=== PATIENT | male | born 1970 | race Caucasian/White ===

== ENCOUNTER → 2016-12-19 | Outpatient (CLI) | payer OTHER ==
[2016-12-19 11:20] LABS: ALANINE AMINOTRANSFERASE 32 U/L (0-55); ALBUMIN 4.2 GM/DL (3.2-4.5); ANION GAP 10 MMOL/L (5-14); ASPARTATE AMINO TRANSFERASE 18 U/L (5-34); BILIRUBIN,TOTAL 0.8 MG/DL (0.1-1.0); BLOOD UREA NITROGEN 15 MG/DL (7-18); BUN/CREATININE RATIO 13; CALCIUM 9.3 MG/DL (8.5-10.1); CARBON DIOXIDE 22 MMOL/L (21-32); CHLORIDE 106 MMOL/L (98-107); CHOLESTEROL 211 MG/DL (< 200); CREATININE SERUM 1.19 MG/DL (0.60-1.30); DIRECT LDL 121 MG/DL (1-129); GFR ESTIMATED > 60; GLUCOSE 389 MG/DL (70-105); POTASSIUM 4.1 MMOL/L (3.6-5.0); SODIUM 138 MMOL/L (135-145); TOTAL PROTEIN 7.1 GM/DL (6.4-8.2); TRIGLYCERIDES 350 MG/DL (<150); VLDL CHOLESTEROL 70 MG/DL (5-40)
== END ==
LOC: LAB 10:30
PROVIDERS: ATTEND Physician Assistant
DX: R94.31 Abnormal electrocardiogram [ECG] [EKG] (principal); I73.9 Peripheral vascular disease, unspecified; E66.9 Obesity, unspecified; I45.10 Unspecified right bundle-branch block
CPT/HCPCS: 36415; 80053; 80061; 83036

== ENCOUNTER → 2017-01-08 | Outpatient (CLI) | payer OTHER | LOC: CARD 09:12 | PROVIDERS: ATTEND Internal Medicine Cardiovascular Disease | DX: I73.9 Peripheral vascular disease, unspecified (principal); I45.10 Unspecified right bundle-branch block; E66.9 Obesity, unspecified; R94.31 Abnormal electrocardiogram [ECG] [EKG] | CPT/HCPCS: 93306 ==

== ENCOUNTER 2017-12-24 09:37 | Emergency (ER) | payer SELFPAY ==
[~2017-12-24] VITALS: Ht 188 cm; Wt 122.5 kg
[2017-12-24] MEDS ORDERED: NS IV 1000 ML 1,000 ML ONE ×2 (09:55→10:54)
--- NOTE | 2017-12-24 10:19 | ED General ---
General Chief Complaint: Glucose Problems Stated Complaint: BS HIGH Nursing Triage Note: Pt arrived to ED from Dental Office. Pt states that his BS >400. Pt states that he is not diagnosed as diabetic, does not take medications, or test his BS. Pt ambulates to Room 8. Pt appears confused, garbled speech, and poor historian. Nursing Sepsis Screen: No Definite Risk Source of Information: Patient Exam Limitations: No Limitations History of Present Illness Date Seen by Provider: Dec 24, 2017 Time Seen by Provider: 10:16 Initial Comments To ER per private vehicle him a dental clinic with reports of high blood sugar greater than 400. Patient is not known to be a diabetic and takes no medications for this. His only complaint today is of foot pain which she states that he's had bilaterally and for about 2 years. He denies nausea vomiting chest pain shortness of breath. He does report general weakness. He is very vague about his complaints and a poor historian. His mother provides most of the history of present illness. Timing/Duration: Other (unsure) Severity: Moderate Associated Systoms: No Nausea/Vomiting; Weakness Allergies and Home Medications Allergies Coded Allergies: No Known Drug Allergies (Unverified , 12/24/17) Home Medications Metformin HCl 500 Mg Tablet, 1,000 MG PO BID Prescribed by: GURPREET DEVINE on 12/24/17 1156 Patient Home Medication List Home Medication List Reviewed: Yes Review of Systems Review of Systems Constitutional: see HPI EENTM: see HPI Respiratory: no symptoms reported Cardiovascular: no symptoms reported Genitourinary: no symptoms reported Musculoskeletal: no symptoms reported Skin: no symptoms reported Psychiatric/Neurological: No Symptoms Reported Hematologic/Lymphatic: No Symptoms Reported Immunological/Allergic: no symptoms reported Past Cstoutv-Qvkquo-Fyasvi Hx Patient Social History Alcohol Use: Denies Use Recreational Drug Use: No Smoking Status: Never a Smoker 2nd Hand Smoke Exposure: No Recent Foreign Travel: No Contact w/Someone Who Travel: No Recent Infectious Disease Expo: No Recent Hopitalizations: No Physical Abuse: No Sexual Abuse: No Mistreated: No Fear: No Past Medical History Surgeries: No Respiratory: No Cardiac: Yes (Pt states "I had to go to a heart Dr. because I have an irregularity". ) Genitourinary: No Gastrointestinal: No Musculoskeletal: No Endocrine: Yes (Pt states "my blood sugars run over 200, but Im not diabetic". ) Are Your Blood Sugars Over 250: Yes HEENT: No Cancer: No Psychosocial: No Integumentary: No Physical Exam Vital Signs Vital Signs - First Documented 12/24/17 09:48 Temp 98.2 Pulse 90 Resp 14 B/P (MAP) 172/106 (128) Pulse Ox 98 O2 Delivery Room Air Capillary Refill : Less Than 3 Seconds Height, Weight, BMI Height: 6'2.00" Weight: 270lbs. oz. 122.353608mf; BMI Method:Stated General Appearance: No Apparent Distress, WD/WN Eyes: Bilateral Eye Normal Inspection, Bilateral Eye PERRL, Bilateral Eye EOMI HEENT: PERRL/EOMI, TMs Normal Neck: Full Range of Motion, Normal Inspection Respiratory: Normal Breath Sounds, No Accessory Muscle Use, No Respiratory Distress Cardiovascular: Regular Rate, Rhythm, Normal Peripheral Pulses Gastrointestinal: Normal Bowel Sounds, Non Tender, Soft Extremity: Normal Capillary Refill, Normal Inspection, No Pedal Edema Neurologic/Psychiatric: Alert, Oriented x3 Skin: Normal Color, Warm/Dry, Other (palm sized mass to the Center of the sternum with normal colored skin overlying this. He states this is been there for about 30 years. Soft on palpation and nontender.) Progress/Results/Core Measures Suspected Sepsis Recent Fever Within 48 Hours: No Infection Criteria Present: None New/Unexplained Altered Menta: Yes Sepsis Screen: No Definite Risk SIRS Temperature:98.2 Pulse: 90 Respiratory Rate: 14 Laboratory Tests 12/24/17 09:55: White Blood Count 6.6 Blood Pressure 172 /106 Mean: 128 Laboratory Tests 12/24/17 09:55: Creatinine 1.31H, Platelet Count 292, Total Bilirubin 0.6 Results/Orders Lab Results Laboratory Tests Test 12/24/17 09:49 12/24/17 09:55 12/24/17 11:18 12/24/17 11:23 Range/Units Glucometer 469 *H 332 H 70-110 MG/DL White Blood Count 6.6 4.3-11.0 10^3/uL Red Blood Count 5.42 4.35-5.85 10^6/uL Hemoglobin 16.1 13.3-17.7 G/DL Hematocrit 46 40-54 % Mean Corpuscular Volume 85 80-99 FL Mean Corpuscular Hemoglobin 30 25-34 PG Mean Corpuscular Hemoglobin Concent 35 32-36 G/DL Red Cell Distribution Width 13.8 10.0-14.5 % Platelet Count 292 130-400 10^3/uL Mean Platelet Volume 10.7 H 7.4-10.4 FL Neutrophils (%) (Auto) 63 42-75 % Lymphocytes (%) (Auto) 27 12-44 % Monocytes (%) (Auto) 8 0-12 % Eosinophils (%) (Auto) 2 0-10 % Basophils (%) (Auto) 1 0-10 % Neutrophils # (Auto) 4.1 1.8-7.8 X 10^3 Lymphocytes # (Auto) 1.8 1.0-4.0 X 10^3 Monocytes # (Auto) 0.5 0.0-1.0 X 10^3 Eosinophils # (Auto) 0.1 0.0-0.3 10^3/uL Basophils # (Auto) 0.0 0.0-0.1 10^3/uL Sodium Level 135 135-145 MMOL/L Potassium Level 4.3 3.6-5.0 MMOL/L Chloride Level 102 98-107 MMOL/L Carbon Dioxide Level 22 21-32 MMOL/L Anion Gap 11 5-14 MMOL/L Blood Urea Nitrogen 12 7-18 MG/DL Creatinine 1.31 H 0.60-1.30 MG/DL Estimat Glomerular Filtration Rate 58 BUN/Creatinine Ratio 9 Glucose Level 481 *H 70-105 MG/DL Mean Blood Glucose 283 H <=126 mg/dL Hemoglobin A1c 11.5 H 4.0-5.6 % Calcium Level 9.7 8.5-10.1 MG/DL Corrected Calcium 9.4 8.5-10.1 MG/DL Total Bilirubin 0.6 0.1-1.0 MG/DL Aspartate Amino Transf (AST/SGOT) 20 5-34 U/L Alanine Aminotransferase (ALT/SGPT) 29 0-55 U/L Alkaline Phosphatase 115 40-136 U/L Total Protein 7.9 6.4-8.2 GM/DL Albumin 4.4 3.2-4.5 GM/DL Thyroid Stimulating Hormone (TSH) 1.27 0.35-4.94 UIU/ML Free Thyroxine 1.06 0.70-1.48 NG/DL Urine Color YELLOW Urine Clarity CLEAR Urine pH 5 5-9 Urine Specific [place] 1.015 L 1.016-1.022 Urine Protein NEGATIVE NEGATIVE Urine Glucose (UA) 4+ H NEGATIVE Urine Ketones 3+ H NEGATIVE Urine Nitrite NEGATIVE NEGATIVE Urine Bilirubin NEGATIVE NEGATIVE Urine Urobilinogen NORMAL NORMAL MG/DL Urine Leukocyte Esterase NEGATIVE NEGATIVE Urine RBC (Auto) NEGATIVE NEGATIVE Urine RBC NONE /HPF Urine WBC NONE /HPF Urine Crystals NONE /LPF Urine Bacteria NEGATIVE /HPF Urine Casts NONE /LPF Urine Mucus NEGATIVE /LPF Urine Culture Indicated NO My Orders Orders - GURPREET DEVINE APRN Insulin (Regular) Human (Humulin R (Per (12/24/17 11:00) Cbc With Automated Diff (12/24/17 10:15) Comprehensive Metabolic Panel (12/24/17 10:15) Ua Culture If Indicated (12/24/17 10:15) Thyroid Stimulating Hormone (12/24/17 10:48) Free T4 (Free Thyroxine) (12/24/17 10:48) Ns Iv 1000 Ml (Sodium Chloride 0.9%) (12/24/17 11:00) Ns Iv 1000 Ml (Sodium Chloride 0.9%) (12/24/17 10:54) Hemoglobin A1c (12/24/17 11:50) Medications Given in ED Vital Signs/I&O Capillary Refill : Less Than 3 Seconds Blood Pressure Mean: 128 Departure Communication (Admissions) patient's mother does not feel like a chest x-ray is warranted 1154- blood sugar down to 332. Mother remains at the bedside. Discussed the case with Dr. Dr. Howell. We will discharged home on metformin 1000 mg by mouth twice a day, diabetic diet instructions and he'll follow up with Dr. Dr. Howell in the clinic tomorrow at 9 AM. Impression Primary Impression: Diabetes mellitus Disposition: 01 HOME, SELF-CARE Condition: Stable Departure-Patient Inst. Decision time for Depature: 11:54 Referrals: JOCELINE HOWELL DO (PCP/Family) Primary Care Physician Patient Instructions: Diabetes Diet , Diabetes Type 2 (DC) Add. Discharge Instructions: 1. Return to ER for any concerns 2 follow-up with Dr. Dr. Howell tomorrow morning at 9 AM. Scripts Metformin HCl (Metformin HCl) 500 Mg Tablet 1000 MG PO BID, #40 TAB Prov: GURPREET DEVINE APRN 12/24/17 Copy Copies To 1: JOCELINE HOWELL PETER J APRN Dec 24, 2017 10:19
[2017-12-24 10:21] LABS: BASOPHILS % (AUTO) 1 % (0-10); EOSINOPHILS # (AUTO) 0.1 10^3/uL (0.0-0.3); EOSINOPHILS % (AUTO) 2 % (0-10); HEMATOCRIT 46 % (40-54); HEMOGLOBIN 16.1 G/DL (13.3-17.7); LYMPHOCYTES # (AUTO) 1.8 X 10^3 (1.0-4.0); LYMPHOCYTES % (AUTO) 27 % (12-44); MEAN CORPUSCULAR HEMOGLOBIN 30 PG (25-34); MEAN CORPUSCULAR HGB CONC 35 G/DL (32-36); MEAN CORPUSCULAR VOLUME 85 FL (80-99); MEAN PLATELET VOLUME 10.7 FL (7.4-10.4); MONOCYTES # (AUTO) 0.5 X 10^3 (0.0-1.0); MONOCYTES % (AUTO) 8 % (0-12); NEUTROPHILS # (AUTO) 4.1 X 10^3 (1.8-7.8); NEUTROPHILS % (AUTO) 63 % (42-75); PLATELET COUNT 292 10^3/uL (130-400); RED BLOOD COUNT 5.42 10^6/uL (4.35-5.85); RED CELL DISTRIBUTION WIDTH 13.8 % (10.0-14.5); WHITE BLOOD COUNT 6.6 10^3/uL (4.3-11.0)
[2017-12-24 10:32] LABS: ALBUMIN 4.4 GM/DL (3.2-4.5); BILIRUBIN,TOTAL 0.6 MG/DL (0.1-1.0); CALCIUM 9.7 MG/DL (8.5-10.1); CREATININE SERUM 1.31 MG/DL (0.60-1.30); POTASSIUM 4.3 MMOL/L (3.6-5.0); TOTAL PROTEIN 7.9 GM/DL (6.4-8.2)
[2017-12-24] MEDS ORDERED: NS IV 1000 ML 1,000 ML IV SCH (11:00)
[2017-12-24] MEDS ORDERED: inSUlin (REGULAR) HUMAN 1 UNIT/0.01 ML (CHARGE PER UNIT) IV SCH (11:00)
[2017-12-24 11:26] LABS: BILIRUBIN,URINE NEGATIVE (NEGATIVE); CLARITY,URINE CLEAR; COLOR,URINE YELLOW; GLUCOSE, URINE (UA) 4+ (NEGATIVE); KETONES,URINE 3+ (NEGATIVE); LEUKOCYTE ESTERASE ,URINE NEGATIVE (NEGATIVE); NITRITE,URINE NEGATIVE (NEGATIVE); PH,URINE 5 (5-9); PROTEIN,URINE NEGATIVE (NEGATIVE); UROBILINOGEN,URINE NORMAL (NORMAL)
[2017-12-24 11:28] LABS: FREE T4 (FREE THYROXINE) 1.06 NG/DL (0.70-1.48)
[2017-12-24 11:36] LABS: BACTERIA,URINE NEGATIVE /HPF
[2017-12-24] MEDS ORDERED: METF-397 PO (11:56)
[2017-12-24 12:10] VITALS: BP 146/88
== END 2017-12-24 12:10 | disposition home or self-care (01) ==
LOC: EDUNIT# 09:37 → ER 09:38
DX: E11.65 Type 2 diabetes mellitus with hyperglycemia (principal); Z79.84 Long term (current) use of oral hypoglycemic drugs
CPT/HCPCS: 36415; 80053; 81000; 82962; 83036; 84439; 84443; 85025; 96361; 96374

== ENCOUNTER 2022-03-29 04:20 | Inpatient (IN) | payer SELFPAY ==
[2022-03-29] VITALS (10 sets, daily range): BP systolic 123–149; BP diastolic 69–90
[~2022-03-29] VITALS: Ht 188 cm; Wt 117.8 kg
[~2022-03-29 04:20] MED LIST: METF-397 PO
[2022-03-29 05:48] LABS: BASOPHILS % (AUTO) 1 % (0-10); EOSINOPHILS # (AUTO) 0.2 10^3/uL (0.0-0.3); EOSINOPHILS % (AUTO) 3 % (0-10); HEMATOCRIT 41 % (40-54); HEMOGLOBIN 13.8 g/dL (13.3-17.7); LYMPHOCYTES # (AUTO) 0.9 10^3/uL (1.0-4.0); LYMPHOCYTES % (AUTO) 17 % (12-44); MEAN CORPUSCULAR HEMOGLOBIN 29 pg (25-34); MEAN CORPUSCULAR HGB CONC 34 g/dL (32-36); MEAN CORPUSCULAR VOLUME 87 fL (80-99); MEAN PLATELET VOLUME 10.4 fL (9.0-12.2); MONOCYTES # (AUTO) 0.6 10^3/uL (0.0-1.0); MONOCYTES % (AUTO) 11 % (0-12); NEUTROPHILS # (AUTO) 3.8 10^3/uL (1.8-7.8); NEUTROPHILS % (AUTO) 69 % (42-75); PLATELET COUNT 296 10^3/uL (130-400); WHITE BLOOD COUNT 5.5 10^3/uL (4.3-11.0)
[2022-03-29 06:01] LABS: ALBUMIN 3.9 GM/DL (3.2-4.5); BILIRUBIN,TOTAL 0.6 MG/DL (0.1-1.0); CALCIUM 9.7 MG/DL (8.5-10.1); CREATININE SERUM 1.14 MG/DL (0.60-1.30); POTASSIUM 4.2 MMOL/L (3.6-5.0); TOTAL PROTEIN 7.2 GM/DL (6.4-8.2)
--- NOTE | 2022-03-29 06:31 | ED General ---
General Chief Complaint: Abdominal/GI Problems Stated Complaint: ABD PAIN Nursing Triage Note: TO ED VIA POV AND AMBULATORY TO ROOM 5. PT STATES, "I THINK MY INTESTINES HAVE BEEN LEAKING FOR 4 DAYS". Source of Information: Patient Exam Limitations: No Limitations (NICK SANCHEZ MD) History of Present Illness Date Seen by Provider: Mar 29, 2022 Time Seen by Provider: 04:46 Initial Comments This 51-year-old gentleman presents to the emergency room with an abscess in his right groin. He had incision and drainage performed at the clinic 4 days ago. He is concerned that this was actually a hernia and not an abscess and that his intestines were incised during the procedure. He is concerned that the drainage is actually bowel contents. He denies any fever but he is tachycardic. He is a diabetic on oral medications. He has foul-smelling purulent drainage coming from the incision site in the groin between the right scrotum and thigh. He was started on Bactrim after the incision and drainage (NICK SANCHEZ MD) Allergies and Home Medications Allergies Coded Allergies: codeine (Verified Adverse Reaction, Unknown, torsten, 03/29/22) Patient Home Medication List Home Medication List Reviewed: Yes (NICK SANCHEZ MD) Home Medication List Reviewed: Yes (EUGENIO WILLIAM MD) Metformin HCl (Metformin HCl) 500 Mg Tablet, 1,000 MG PO BID Prescribed by: GURPREET DEVINE on 12/24/17 2776 Review of Systems Review of Systems Constitutional: no symptoms reported EENTM: no symptoms reported Respiratory: see HPI Cardiovascular: no symptoms reported Gastrointestinal: no symptoms reported Genitourinary: see HPI Musculoskeletal: no symptoms reported Skin: see HPI Psychiatric/Neurological: No Symptoms Reported Hematologic/Lymphatic: No Symptoms Reported Immunological/Allergic: no symptoms reported (NICK SANCHEZ MD) Past Gzsplde-Ndgolm-Ldlpzf Hx Patient Social History Tobacco Use?: No Substance use?: No Alcohol Use?: No (NICK SANCHEZ MD) Immunizations Up To Date Influenza Vaccine Up-to-Date: No; Not Current (NICK SANCHEZ MD) Past Medical History Surgeries: No Respiratory: No Cardiac: Yes (Pt states "I had to go to a heart Dr. because I have an irregularity". ) Neurological: No Genitourinary: No Gastrointestinal: No Musculoskeletal: No Endocrine: Yes Diabetes, Non-Insulin dep HEENT: No Cancer: No Psychosocial: No Integumentary: Yes (Large cystic lesion over the superior sternal region) (NICK SANCHEZ MD) Physical Exam Vital Signs Vital Signs - First Documented 03/29/22 04:37 Temp 36.7 Pulse 104 Resp 16 B/P (MAP) 193/106 (135) Pulse Ox 98 O2 Delivery Room Air (EUGENIO WILLIAM MD) Vital Signs Capillary Refill : Less Than 3 Seconds (NICK SANCHEZ MD) Height, Weight, BMI Height: 6'2.00" Weight: 270lbs. oz. 122.861358ie; 34.00 BMI Method:Stated General Appearance: No Apparent Distress, WD/WN HEENT: PERRL/EOMI, Normal ENT Inspection Neck: Normal Inspection Respiratory: Lungs Clear, Normal Breath Sounds, No Accessory Muscle Use, No Respiratory Distress, Other (Large cystic lesion over the superior sternal region) Cardiovascular: No Edema, No Murmur, Tachycardia Gastrointestinal: Normal Bowel Sounds, Non Tender, Soft Genital/Rectal: Other (There is a fairly large area of induration probably 4 cm in diameter in the right groin with an area draining inferior. Drainage is purulent and foul-smelling. Over the mons area there is warmth and erythema.) Extremity: Normal Inspection, No Pedal Edema Neurologic/Psychiatric: Alert, Oriented x3, No Motor/Sensory Deficits, Normal Mood/Affect Skin: Normal Color, Other (See above) (NICK SANCHEZ MD) Focused Exam Lactate Level 03/29/22 08:26: Lactic Acid Level 1.35 (EUGENIO WILLIAM MD) Lactic Acid Level Laboratory Tests Test 03/29/22 08:26 Lactic Acid Level 1.35 MMOL/L (0.50-2.00) (EUGENIO WILLIAM MD) Progress/Results/Core Measures Suspected Sepsis SIRS Temperature: Pulse: 104 Respiratory Rate: 16 Laboratory Tests 03/29/22 05:27: White Blood Count 5.5 Blood Pressure 193 /106 Mean: 135 Laboratory Tests 03/29/22 05:27: Creatinine 1.14, Platelet Count 296, Total Bilirubin 0.6 (NICK SANCHEZ MD) Results/Orders Lab Results Laboratory Tests Test 03/29/22 05:27 03/29/22 08:26 03/29/22 08:48 Range/Units White Blood Count 5.5 4.3-11.0 10^3/uL Red Blood Count 4.75 4.30-5.52 10^6/uL Hemoglobin 13.8 13.3-17.7 g/dL Hematocrit 41 40-54 % Mean Corpuscular Volume 87 80-99 fL Mean Corpuscular Hemoglobin 29 25-34 pg Mean Corpuscular Hemoglobin Concent 34 32-36 g/dL Red Cell Distribution Width 12.4 10.0-14.5 % Platelet Count 296 130-400 10^3/uL Mean Platelet Volume 10.4 9.0-12.2 fL Immature Granulocyte % (Auto) 0 % Neutrophils (%) (Auto) 69 42-75 % Lymphocytes (%) (Auto) 17 12-44 % Monocytes (%) (Auto) 11 0-12 % Eosinophils (%) (Auto) 3 0-10 % Basophils (%) (Auto) 1 0-10 % Neutrophils # (Auto) 3.8 1.8-7.8 10^3/uL Lymphocytes # (Auto) 0.9 L 1.0-4.0 10^3/uL Monocytes # (Auto) 0.6 0.0-1.0 10^3/uL Eosinophils # (Auto) 0.2 0.0-0.3 10^3/uL Basophils # (Auto) 0.0 0.0-0.1 10^3/uL Immature Granulocyte # (Auto) 0.0 0.0-0.1 10^3/uL Sodium Level 136 135-145 MMOL/L Potassium Level 4.2 3.6-5.0 MMOL/L Chloride Level 103 98-107 MMOL/L Carbon Dioxide Level 20 L 21-32 MMOL/L Anion Gap 13 5-14 MMOL/L Blood Urea Nitrogen 15 7-18 MG/DL Creatinine 1.14 0.60-1.30 MG/DL Estimat Glomerular Filtration Rate 77 BUN/Creatinine Ratio 13 Glucose Level 360 H 70-105 MG/DL Calcium Level 9.7 8.5-10.1 MG/DL Corrected Calcium 9.8 8.5-10.1 MG/DL Total Bilirubin 0.6 0.1-1.0 MG/DL Aspartate Amino Transf (AST/SGOT) 11 5-34 U/L Alanine Aminotransferase (ALT/SGPT) 15 0-55 U/L Alkaline Phosphatase 72 40-136 U/L C-Reactive Protein High Sensitivity 6.26 H 0.00-0.50 MG/DL Total Protein 7.2 6.4-8.2 GM/DL Albumin 3.9 3.2-4.5 GM/DL Lactic Acid Level 1.35 0.50-2.00 MMOL/L Glucometer 305 H 70-110 MG/DL (EUGENIO WILLIAM MD) My Orders Orders - EUGENIO WILLIAM MD Blood Culture (03/29/22 08:13) Lactic Acid Analyzer (03/29/22 08:13) Piperacillin Sodium/Tazobactam (Zosyn Vi (03/29/22 08:15) Vancomycin Injection (Vancomycin Injecti (03/29/22 08:15) Clindamycin 600 Mg/50 Ml Ivpb (Cleocin P (03/29/22 08:15) Ns Iv 1000 Ml (Sodium Chloride 0.9%) (03/29/22 08:13) Blood Culture (03/29/22 08:26) Ed Admission (Communication) (03/29/22 10:45) (EUGENIO WILLIAM MD) Medications Given in ED Current Medications Medications Dose Ordered Sig/Alex Route Start Time Stop Time Status Last Admin Dose Admin Clindamycin Phosphate/Dextrose 50 ml @ 100 mls/hr ONCE ONCE IV 03/29/22 08:15 03/29/22 08:44 DC 03/29/22 08:26 100 MLS/HR Lactated Ringer's 1,000 ml @ 0 mls/hr Q0M PRN IV 03/29/22 10:00 03/29/22 12:10 0 MLS/HR Piperacillin Sod/ Tazobactam Sod 4.5 gm/Sodium Chloride 100 ml @ 200 mls/hr ONCE ONCE IV 03/29/22 08:15 12 08:44 DC 03/29/22 10:29 200 MLS/HR Vancomycin HCl 1000 mg/Sodium Chloride 250 ml @ 250 mls/hr ONCE ONCE IV 03/29/22 08:15 03/29/22 09:14 DC 03/29/22 09:06 250 MLS/HR (EUGENIO WILLIAM MD) Vital Signs/I&O 03/29/22 04:37 Temp 36.7 Pulse 104 Resp 16 B/P (MAP) 193/106 (135) Pulse Ox 98 O2 Delivery Room Air (EUGENIO WILLIAM MD) Vital Signs/I&O Capillary Refill : Less Than 3 Seconds (NICK SANCHEZ MD) Blood Pressure Mean: 135 Progress Note : Time: 06:31 Progress Note Patient was interviewed and examined. Based on examination it is difficult to determine whether abscess is still present or if there is simply a large area of induration. It is also difficult to ascertain how deep or widespread the affected area is. There is purulent drainage actively coming from the abscess when expressed. Because of the diabetes and tachycardia in the context of skin infection, labs are being obtained. IV fluids have been ordered. Renal function is normal, so CT with contrast to further evaluate the abscess has been ordered. Patient declined pain medication. Care is being transitioned to Dr. William at this time. CT scan is pending. (NICK SANCHEZ MD) Progress Note #1: Time: 08:30 Progress Note Patient care assumed at shift change from Dr. Condon CT being ordered at shift change. Patient reexamined at approximately 8:10. He states his pain is controlled. He has generalized malaise fatigue and discomfort in the right groin. He tells me that the area of concern has been developing since about 24 March. He has been taking Bactrim twice a day since he was seen at [facility] and had the area opened up. He states it is worsened. He endorses subjective fever with chills. His appetite has been decreased. He thinks he is lost 5 pounds in 5 days. Normal urination, normal bowel movements. Area is examined as the patient is lying shelter on his right side. He has quite a bit of induration and erythema and tenderness along the right hemiscrotum and up into the inguinal region. No open wound is visualized. No drainage. The patient states that the wound has been bleeding. Case is discussed with Dr. Raphael after review of the CT reading by the radiologist. Zosyn, Vanco and clindamycin have been ordered as well as more IV fluids. CBC is unremarkable. Chemistry is only pertinent for a blood sugar of 360. Blood cultures have been ordered. Progress Note #2: Time: 10:[address] Raphael just saw the patient; he will go from ER to OR and Dr Raphael will write orders. (EUGENIO WILLIAM MD) Diagnostic Imaging Diagonstic Imaging: CT Comments [facility], [place] NAME: TRISTEN DRAKE [facility] REC#: [id number] PT STATUS: REG ER : 1970 PHYSICIAN: NICK SANCHEZ MD ADMIT DATE: 03/29/22/ER Draft Date of Exam:03/29/22 CT PELVIS W PROCEDURE: CT pelvis with contrast. TECHNIQUE: Oral and intravenous contrast were administered with pelvic CT performed. Auto Exposure Controls were utilized during the CT exam to meet ALARA standards for radiation dose reduction. INDICATION: Groin infection CORRELATION STUDY: None FINDINGS: Extensive inflammatory change in the right inguinal region with soft tissue gas collection. No drainable encapsulated fluid collection. Overlying skin thickening present. Prominent, likely reactive enlarged right inguinal lymph nodes. Urinary bladder unremarkable. No significant free pelvic fluid. Partially visualized gastrointestinal tract including appendix demonstrates no acute abnormality. Osseous structures demonstrate no acute findings. IMPRESSION: 1. 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 Referrals: [facility] [place] ([place]P/Family) Primary Care Physician NICK SANCHEZ MD Mar 29, 2022 06:31 EUGENIO WILLIAM MD Mar 29, 2022 08:13
[2022-03-29] MEDS ORDERED: NS IV 1000 ML 1,000 ML IV SCH (06:45)
--- NOTE | 2022-03-29 07:33 | Diagnostic Imaging Report ---
PROCEDURE: CT pelvis with contrast. TECHNIQUE: Oral and intravenous contrast were administered with pelvic CT performed. Auto Exposure Controls were utilized during the CT exam to meet ALARA standards for radiation dose reduction. INDICATION: Groin infection CORRELATION STUDY: None FINDINGS: Extensive inflammatory change in the right inguinal region with soft tissue gas collection. No drainable encapsulated fluid collection. Overlying skin thickening present. Prominent, likely reactive enlarged right inguinal lymph nodes. Urinary bladder unremarkable. No significant free pelvic fluid. Partially visualized gastrointestinal tract including appendix demonstrates no acute abnormality. Osseous structures demonstrate no acute findings. IMPRESSION: 1. 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 Dictated by: Dictated on workstation # [id number]
[2022-03-29] MEDS ORDERED: NS IV 1000 ML 1,000 ML IV STA (08:13)
[2022-03-29] MEDS ORDERED: VANCOMYCIN INJECTION 1,000 MG in NS (IVPB) 250 ML IV ONE (08:15)
[2022-03-29] MEDS ORDERED: PIPERACILLIN SODIUM/TAZOBACTAM 4.5 GM in NS (IVPB) 100 ML IV ONE (08:15)
[2022-03-29] MEDS ORDERED: CLINDAMYCIN 600 MG/50 ML IVPB 50 ML IV ONE (08:15)
[2022-03-29] MEDS ORDERED: LIDOCAINE PF 2% 5 ML (XYLOCAINE) VIAL ONE (09:48)
[2022-03-29] MEDS ORDERED: proPOfol 200 MG/20 ML (DIPRIVAN) VIAL IV ONE (09:48)
[2022-03-29] MEDS ORDERED: MIDAZOLAM 2 MG/2 ML (VERSED) VIAL ONE (09:49)
[2022-03-29] MEDS ORDERED: fentaNYL INJ 100 MCG/2 ML AMP ONE (09:49)
[2022-03-29] MEDS: LACTATED RINGERS 1,000 ML IV PRN ×2 (11:06→12:10)
--- NOTE | 2022-03-29 11:25 | Consultation - Surgery ---
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 HPI per ED: This 51-year-old gentleman presents to the emergency room with an abscess in his right groin. He had incision and drainage performed at the clinic 4 days ago. He is concerned that this was actually a hernia and not an abscess and that his intestines were incised during the procedure. He is concerned that the drainage is actually bowel contents. He denies any fever but he is tachycardic. He is a diabetic on oral medications. He has foul-smelling purulent drainage coming from the incision site in the groin between the right scrotum and thigh. He was started on Bactrim after the incision and drainage When I spoke to pt this am he stated his pain was ok, controlled with meds. Th is started a little over a week ago, continued to get worse. He denied any trauma to the area, did not think he got bit by anything and thinks it started out as a "pimple" Allergies and Home Medications Allergies Coded Allergies: codeine (Verified Adverse Reaction, Unknown, torsten, 03/29/22) Patient Home Medication List Home Medication List Reviewed: Yes Metformin HCl (Metformin HCl) 500 Mg Tablet, 1,000 MG PO BID Prescribed by: GURPREET DEVINE on 12/24/17 1155 Past Erhbcdo-Pihduw-Zdnado Hx Patient Social History Smoking Status: Never a Smoker 2nd Hand Smoke Exposure: No Recent Hopitalizations: No Alcohol Use?: No Surgeries History of Surgeries: No Respiratory History of Respiratory Disorde: No Cardiovascular History of Cardiac Disorders: Yes (Pt states "I had to go to a heart Dr. because I have an irregularity". ) Neurological History of Neurological Disord: No Genitourinary History of Genitourinary Disor: No Gastrointestinal History of Gastrointestinal Di: No Musculoskeletal History of Musculoskeletal Dis: No Endocrine History of Endocrine Disorders: Yes Endocrine Disorders: Diabetes, Non-Insulin dep HEENT History of HEENT Disorders: No Cancer History of Cancer: No Psychosocial History of Psychiatric Problem: No Integumentary History of Skin or Integumenta: Yes (Large cystic lesion over the superior sternal region) Family Medical History Significant Family History: Cancer (Father of colon CA in his 50's), Diabetes (Uncle), Hypertension (Sister) Review of Systems-General Constitutional: diaphoresis, malaise, weakness EENTM: No blurred vision, No double vision, No mouth swelling Respiratory: No cough, No dyspnea on exertion, No hemoptysis Cardiovascular: No chest pain, No edema, No palpitations Gastrointestinal: abdominal pain, constipation; No jaundice, No nausea, No vomiting Genitourinary: No discharge, No dysuria, No frequency, No hematuria Musculoskeletal: joint pain, muscle pain, muscle stiffness Skin: see HPI; No pruritus, No rash Psychiatric/Neurological: Denies Anxiety, Denies Depressed, Denies Seizure, Denies Tremors Physical Exam-General Problems Physical Exam Vital Signs Vital Signs - First Documented 03/29/22 04:37 Temp 36.7 Pulse 104 Resp 16 B/P (MAP) 193/106 (135) Pulse Ox 98 O2 Delivery Room Air Capillary Refill : Less Than 3 Seconds General Appearance: WD/WN, mild distress Eyes: Bilateral Eye PERRL, Bilateral Eye EOMI HEENT: pharynx normal; No scleral icterus (R), No scleral icterus (L) Neck: non-tender, supple Respiratory: lungs clear, normal breath sounds, no respiratory distress, no accessory muscle use Cardiovascular: no murmur, tachycardia Gastrointestinal: non tender, soft, no organomegaly, hernia (small umbilical) Rectal: deferred Back: no CVA tenderness, no vertebral tenderness Extremities: non-tender, no pedal edema, no calf tenderness Neurologic/Psychiatric: alert, oriented x 3, other (flat affect) Skin: warm/dry, other (vitiligo on abdomen and legs, right groin there is a 10 x 4cm area of erythema, it is warm and very tender to the touch) Lymphatic: no adenopathy (neck or axilla) Data Review Labs Laboratory Tests 03/29/22 05:27: White Blood Count 5.5, Red Blood Count 4.75, Hemoglobin 13.8, Hematocrit 41, Mean Corpuscular Volume 87, Mean Corpuscular Hemoglobin 29, Mean Corpuscular Hemoglobin Concent 34, Red Cell Distribution Width 12.4, Platelet Count 296, Mean Platelet Volume 10.4, Immature Granulocyte % (Auto) 0, Neutrophils (%) (Auto) 69, Lymphocytes (%) (Auto) 17, Monocytes (%) (Auto) 11, Eosinophils (%) (Auto) 3, Basophils (%) (Auto) 1, Neutrophils # (Auto) 3.8, Lymphocytes # (Auto) 0.9L, Monocytes # (Auto) 0.6, Eosinophils # (Auto) 0.2, Basophils # (Auto) 0.0, Immature Granulocyte # (Auto) 0.0, Sodium Level 136, Potassium Level 4.2, Chloride Level 103, Carbon Dioxide Level 20L, Anion Gap 13, Blood Urea Nitrogen 15, Creatinine 1.14, Estimat Glomerular Filtration Rate 77, BUN/Creatinine Ratio 13, Glucose Level 360H, Calcium Level 9.7, Corrected Calcium 9.8, Total Bilirubin 0.6, Aspartate Amino Transf (AST/SGOT) 11, Alanine Aminotransferase (ALT/SGPT) 15, Alkaline Phosphatase 72, C-Reactive Protein High Sensitivity 6.26H, Total Protein 7.2, Albumin 3.9 03/29/22 08:26: Lactic Acid Level 1.35 03/29/22 08:48: Glucometer 305H Radiology Date of Exam:03/29/22 CT PELVIS W PROCEDURE: CT pelvis with contrast. TECHNIQUE: Oral and intravenous contrast were administered with pelvic CT performed. Auto Exposure Controls were utilized during the CT exam to meet ALARA standards for radiation dose reduction. INDICATION: Groin infection CORRELATION STUDY: None FINDINGS: Extensive inflammatory change in the right inguinal region with soft tissue gas collection. No drainable encapsulated fluid collection. Overlying skin thickening present. Prominent, likely reactive enlarged right inguinal lymph nodes. Urinary bladder unremarkable. No significant free pelvic fluid. Partially visualized gastrointestinal tract including appendix demonstrates no acute abnormality. Osseous structures demonstrate no acute findings. IMPRESSION: 1. 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 Dictated by: Dictated on workstation # [id number] Dict: 03/29/22723 Trans: 03/29/22919 [facility] [id number] Interpreted by: DUSTY DEWEY DO Electronically signed by: DUSTY DEWEY DO 03/29/22919 Assessment/Plan Assessment/Plan Assessment/Plan Right groin Abscess with gas in cavity DM I reviewed the CT myself and discussed the case with the ED provider. I can see the area of abscess and air; this may be a gas producing organism or could be from previous attempt at drainage. It is not in the scrotum, so I don't think this is Fourniers'. However, this does need to be opened immediately. I talked to pt about Incision and Drainage with debridement of any necrotic area and possible packing. We will also get cultures of this for correct antibiotics. He has not eaten since yesterday. Will get consent for the procedure and start IV ABX, IV fluids, pain control and anti-emetics as needed. All questions answered to his satisfaction. PATI DALEY DO Mar 29, 2022 11:25
[2022-03-29] MEDS ORDERED: ONDANSETRON 4 MG/2 ML (SDV) Z0FRAN ONE (11:44)
--- NOTE | 2022-03-29 12:05 | Progress Note-Post Operative ---
Post-Operative Progess Note Surgeon (s)/Bending Machine Set Up Operator (s) Surgeon PATI DALEY DO Bending Machine Set Up Operator: none Pre-Operative Diagnosis Right groin abscess Post-Operative Diagnosis same pending path Procedure & Operative Findings Date of Procedure 03/29/22 Procedure Performed/Findings Incision and drainage of abscess with packing Debridement of necrotic tissue - apxx 2-3square centimeters of fat Anesthesia Type LMA Estimated Blood Loss Estimated blood loss (mL): less than 15ml Specimens/Packing Specimens Removed abscess culture necrotic tissue PATI DALEY DO Mar 29, 2022 12:05
[2022-03-29] MEDS ORDERED: SEVOFLURANE (ULTANE) 15 ML INHAL SOLN ONE (12:11)
[2022-03-29] MEDS ORDERED: morphine INJ 10 MG/ML 1ML (SYR OR VIAL) IVP ONE (12:45)
[2022-03-29] MEDS ORDERED: ONDANSETRON 4 MG/2 ML (SDV) Z0FRAN IVP PRN ×3 (12:45→20:45)
[2022-03-29] MEDS ORDERED: morphine INJ 4 MG/ML 1 ML (VIAL/SYRINGE) ONE (12:50)
[2022-03-29] MEDS ORDERED: morphine INJ 4 MG/ML 1 ML (VIAL/SYRINGE) IVP PRN (15:45)
[2022-03-29] MEDS ORDERED: CALCIUM CARBONATE 500 MG (TUMS) TAB.CHEW PO PRN (20:45)
[2022-03-29] MEDS ORDERED: BISACODYL 10 MG SUPP (DULCOLAX) PR PRN (20:45)
[2022-03-29] MEDS ORDERED: LOPERAMIDE 2 MG (IMODIUM) TABLET PO PRN (20:45)
[2022-03-29] MEDS ORDERED: ALPRAZolam 0.25 MG (XANAX) TAB PO PRN (20:45)
[2022-03-29] MEDS ORDERED: HYDROcodone/APAP 5 MG/325 MG (LORTAB) TAB PO PRN (20:45)
[2022-03-29] MEDS ORDERED: LACTULOSE SYRUP 10GM/15ML (ENULOSE) 30ML UDC PO PRN (20:45)
[2022-03-29] MEDS ORDERED: ACETAMINOPHEN 325 MG TABLET PO PRN (20:45)
[2022-03-29] MEDS ORDERED: DOCUSATE SODIUM 100 MG (COLACE) CAP PO PRN (20:45)
[2022-03-29] MEDS ORDERED: diphenhydrAMINE 25 MG TAB (BENADRYL) PO PRN (20:45)
[2022-03-29] MEDS ORDERED: ONDANSETRON 4 MG (ZOFRAN) ORAL DISSOLVE TAB PO PRN (20:45)
[2022-03-29] MEDS ORDERED: MELATONIN 3 MG TABLET PO PRN (20:45)
[2022-03-29] MEDS ORDERED: MENTHOL/ZINC OXIDE (CALMOSEPTINE) 113 GM TUBE TP PRN (20:45)
[2022-03-29] MEDS: CLINDAMYCIN 900 MG/50 ML IVPB 50 ML IV SCH (21:00)
[2022-03-29] MEDS: inSUlin ASPART (NovoLOG) 1 UNIT/0.01 ML (CHARGE PER UNIT) SC SCH (21:01)
[2022-03-29] MEDS: SENNA W/DOCUSATE (SENOKOT S) TABLET PO SCH (21:01)
[2022-03-29] MEDS: ENOXAPARIN 40 MG/0.4 ML (LOVENOX) SYR SC SCH (21:01)
--- NOTE | 2022-03-29 23:04 | OPERATIVE REPORT ---
PREOPERATIVE DIAGNOSIS: Right groin abscess. POSTOPERATIVE DIAGNOSES: Right groin abscess plus necrotic tissue. PROCEDURES: 1. Incision and drainage of abscess with packing. 2. Debridement of necrotic tissue, approximately 2-3 square cm of tissue. SURGEON: Pito Raphael DO ADMINISTRATIVE SUPPORT ASSISTANT: None. ANESTHESIA: LMA. SPECIMENS: 1. Necrotic tissue. 2. Abscess culture. BLOOD LOSS: Less than 15 mL. FLUIDS: Per anesthesia. POSTOPERATIVE CONDITION: Stable. INDICATIONS FOR PROCEDURE: The patient is a 51-year-old male who came in with right groin abscess. I had attempted to DICTATION ENDS HERE Job ID: [id number] DocumentID: [id number] Dictated Date: 03/29/2022 18:56:33 Director Of Labor Relations Date: 03/29/2022 23:03:00 Dictated By: PITO RAPHAEL DO
--- NOTE | 2022-03-29 23:15 | OPERATIVE REPORT ---
PREOPERATIVE DIAGNOSIS: Right groin abscess. POSTOPERATIVE DIAGNOSES: Right groin abscess plus necrotic tissue. PROCEDURES: 1. Incision and drainage of abscess with packing. 2. Debridement of necrotic tissue, approximately 2-3 square cm of fat. SURGEON: Pito Raphael DO SECURITY INFRASTRUCTURE ENGINEER: None. ANESTHESIA: LMA. SPECIMENS: 1. Abscess culture. 2. Necrotic tissue. BLOOD LOSS: Less than 15 mL. FLUIDS: Per anesthesia. POSTOPERATIVE CONDITION: Stable. INDICATIONS FOR PROCEDURE: The patient is a 51-year-old male who has an area on the groin that he had gone to see the urgent care walk-in and they tried to drain it, did not work, pain got progressively worse, more inflammation and redness in the area and he came back to the ER. CT performed, which showed air underneath, possibly gas producing organism. Discussed with him that this needed to be opened and we took him to the operating room. FINDINGS: The patient had purulent fluid. A large cavity created by the abscess and some necrotic tissue, which looked like it was just necrotic fat. DESCRIPTION OF PROCEDURE: After informed consent was obtained, the patient was brought to the operating room and placed on the table in supine position. He was frog-legged. Area was then sterilely prepped and draped. Could see right in the groin just above the inguinal crease, but not down towards the scrotum, an area of redness. There was actually a little bit of purulent fluid coming out. I elected to open this with a #15 blade, carried down through the skin and subcutaneous tissue. We got out purulent fluid, got a wound culture of this and then opened this area with Bovie electrocautery, bluntly dissected the cavity, measured the cavity was 5.5 cm long by about 2.2 cm deep. There was some necrotic tissue. We were able to grasp this with Allis and then cut this off, about 2-3 square cm of necrotic tissue, most likely fat, did not appear to be fascia and then at this point, copiously irrigated with normal saline. Hemostasis was obtained using Bovie electrocautery and then elected to pack this area with 0.5 inch iodoform packing and then cleaned and dried the area and then placed a dressing. The patient tolerated the procedure. Sponge, instrument and needle count correct at the end of the case. Job ID: [id number] DocumentID: [id number] Dictated Date: 03/29/2022 19:02:03 Rugby League Footballer Date: 03/29/2022 23:14:00 Dictated By: DO ISABELLA CHAPMAN
[2022-03-30 03:56] VITALS: BP 125/83
[2022-03-30 05:59] LABS: BASOPHILS % (AUTO) 1 % (0-10); EOSINOPHILS % (AUTO) 0 % (0-10); HEMATOCRIT 39 % (40-54); HEMOGLOBIN 13.1 g/dL (13.3-17.7); LYMPHOCYTES # (AUTO) 1.3 10^3/uL (1.0-4.0); LYMPHOCYTES % (AUTO) 24 % (12-44); MEAN CORPUSCULAR HEMOGLOBIN 29 pg (25-34); MEAN CORPUSCULAR HGB CONC 33 g/dL (32-36); MEAN CORPUSCULAR VOLUME 88 fL (80-99); MEAN PLATELET VOLUME 10.1 fL (9.0-12.2); MONOCYTES # (AUTO) 0.5 10^3/uL (0.0-1.0); MONOCYTES % (AUTO) 10 % (0-12); NEUTROPHILS # (AUTO) 3.4 10^3/uL (1.8-7.8); NEUTROPHILS % (AUTO) 65 % (42-75); PLATELET COUNT 281 10^3/uL (130-400); WHITE BLOOD COUNT 5.2 10^3/uL (4.3-11.0)
[2022-03-30] MEDS: CLINDAMYCIN 900 MG/50 ML IVPB 50 ML IV SCH ×3 (06:07→22:59)
--- NOTE | 2022-03-30 06:11 | History & Physical-Hospitalist ---
History of Present Illness HPI/Chief Complaint CC: Groin abscess HPI: This is a 51yoWM patient not yet established with [facility] until 04/10/22 who has no local doctor who only goes to walk in clinic who presents to the ER with groin abscess and required an I&D by Dr Raphael yesterday and is doing much better today. His sugars are very high and only takes Metformin. OHA will be initiated. Source: patient Exam Limitations: no limitations Date Seen 03/30/22 Time Seen by a Provider: 11:00 Attending Physician [facility] PCP Admitting Physician: Pito Raphael DO Attending Physician: Pito Raphael DO Referring Physician Date of Admission Mar 29, 2022 at 15:36 Home Medications & Allergies Home Medications Reviewed patient Home Medication Reconciliation performed by pharmacy medication reconciliations endoscopic technician and/or nursing. Patients Allergies have been reviewed. Allergies Allergies Coded Allergies codeine (Verified Adverse Reaction, Unknown, torsten, 03/29/22) Past Xifvxyi-Tdubqi-Hekyjk Hx Patient Social History Marrital Status: single Employed/Student: unemployed Tobacco Use?: No Smoking Status: Never a Smoker Use of E-Cig and/or Vaping dev: No Substance use?: No Alcohol Use?: No Pt feels they are or have been: No Immunizations Up To Date Tetanus Booster (TDap): Unknown Current Status Advance Directives: No Communicates: Verbally Primary Language: Mauritian Preferred Spoken Language: Mauritian Is interpretation needed?: No Sensory deficits: Vision impairment Implanted or Applied Medical D: None Past Medical History Diabetes, Non-Insulin dep Family Medical History Cancer (Father of colon CA in his 50's), Diabetes (Uncle), Hypertension (Sister) Review of Systems Constitutional: see HPI, fever, malaise, weakness Physical Exam Physical Exam Vital Signs Vital Signs - First Documented 03/29/22 04:37 Temp 36.7 Pulse 104 Resp 16 B/P (MAP) 193/106 (135) Pulse Ox 98 O2 Delivery Room Air Capillary Refill : Less Than 3 Seconds Height, Weight, BMI Height: 6'2.00" Weight: 270lbs. oz. 122.674392lc; 34.00 BMI Method:Stated General Appearance: No Apparent Distress, Chronically ill, Obese Eyes: Right Eye Normal Inspection, Right Eye PERRL HEENT: PERRL/EOMI, Normal ENT Inspection, Pharynx Normal, Moist Mucous Membranes Neck: Full Range of Motion, Normal Inspection, Non Tender Respiratory: Chest Non Tender, Lungs Clear, Normal Breath Sounds, No Accessory Muscle Use, No Respiratory Distress Cardiovascular: Regular Rate, Rhythm, No Edema, No Gallop, No JVD, No Murmur, Normal Peripheral Pulses Gastrointestinal: Normal Bowel Sounds, No Organomegaly, No Pulsatile Mass, Non Tender, Soft Back: Normal Inspection, No CVA Tenderness, No Vertebral Tenderness Extremity: Normal Capillary Refill, Normal Inspection, Normal Range of Motion, Non Tender, No Calf Tenderness, No Pedal Edema Neurologic/Psychiatric: Alert, Oriented x3, No Motor/Sensory Deficits, cut off saw tender metal II- XII Norm as Tested, Depressed Affect Skin: Normal Color, Warm/Dry Lymphatic: No Adenopathy Results Results/Procedures Labs Laboratory Tests 03/29/22 05:27 03/30/22 05:33 Patient resulted labs reviewed. 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
[2022-03-30 06:21] LABS: ALBUMIN 3.4 GM/DL (3.2-4.5); BILIRUBIN,TOTAL 0.5 MG/DL (0.1-1.0); CALCIUM 8.9 MG/DL (8.5-10.1); CREATININE SERUM 0.92 MG/DL (0.60-1.30); POTASSIUM 3.7 MMOL/L (3.6-5.0); TOTAL PROTEIN 6.2 GM/DL (6.4-8.2)
[2022-03-30] MEDS: inSUlin ASPART (NovoLOG) 1 UNIT/0.01 ML (CHARGE PER UNIT) SC SCH ×4 (06:31→23:03)
[2022-03-30] MEDS ORDERED: FLU QUADRIvalent (6 months+) 60 mcg/0.5 ml 2022-23 (Fluzone) IM ONE (06:45)
[2022-03-30 08:00] VITALS: BP 135/71
[2022-03-30] MEDS: SENNA W/DOCUSATE (SENOKOT S) TABLET PO SCH ×2 (08:19→21:00)
[2022-03-30] MEDS ORDERED: PANTOPRAZOLE 40 MG (PROTONIX) VIAL IVP SCH (09:00)
[2022-03-30] MEDS ORDERED: glyBURIDE 2.5 MG (MICRONASE) TAB PO ONE (10:30)
--- NOTE | 2022-03-30 11:21 | Progress Note - Surgery ---
REGINAFLAVIO 03/30/22 1121: Subjective Date Seen by a Provider: Mar 30, 2022 Time Seen by a Provider: 10:14 Subjective/Events-last exam Pt is resting comfortably in bed. Pt states that he feels "fine" today and that his pain is unchanged from yesterday, rating it a 1/10. Pt's affect is still very flat in room. Pt states that he has not had a BM or flatus but has been voiding without issue. Pt states that he has not been ambulating because of the wires in the bed "binding him up". Pt has been tolerating clears without issue. Pt denies lightheadedness, cough, hematuria, nausea, vomiting, SOB, and abd pain. Review of Systems General: No Chills, No Malaise HEENT: No Head Aches, No Visual Changes Pulmonary: No Dyspnea, No Cough Cardiovascular: No: Chest Pain, Edema, Lt Headedness Gastrointestinal: No: Nausea, Vomiting, Abdominal Pain Genitourinary: No Dysuria, No Hematuria Musculoskeletal: other (groin pain); No: neck pain, shoulder pain Neurological: No: Weakness, Numbness Focused Exam Lactate Level 03/29/22 08:26: Lactic Acid Level 1.35 Objective Exam Vital Signs Date Time Temp Pulse Resp B/P (MAP) Pulse Ox O2 Delivery O2 Flow Rate FiO2 03/30/22 08:32 Room Air 0.00 03/30/22 08:00 73 22 135/71 (92) 98 Room Air 03/30/22 08:00 94 Room Air 03/30/22 07:00 79 03/30/22 03:56 36.2 81 10 125/83 (97) 95 Room Air 03/30/22 01:00 80 03/29/22 23:53 36.6 78 22 126/72 (90) 94 Room Air 03/29/22 19:37 36.4 79 18 126/72 (90) 95 Room Air 03/29/22 19:35 94 Room Air 03/29/22 19:00 80 03/29/22 16:00 36.1 76 18 123/69 (87) 96 Room Air 03/29/22 13:32 96 Room Air 03/29/22 13:10 36.3 21 147/80 (102) 95 Room Air 03/29/22 13:10 Room Air 03/29/22 13:00 18 130/85 (100) 96 Room Air 03/29/22 12:54 69 03/29/22 12:50 16 138/90 (106) 95 Room Air 03/29/22 12:50 Room Air 03/29/22 12:40 14 149/83 (105) 100 OxyMask 10.00 03/29/22 12:35 OxyMask 10.00 03/29/22 12:30 14 147/84 (105) 100 OxyMask 10.00 03/29/22 12:20 15 149/88 (108) 100 OxyMask 10.00 03/29/22 12:17 OxyMask 10.00 03/29/22 12:17 36.6 18 146/89 (108) 100 OxyMask 10.00 03/29/22 11:25 36.7 78 18 145/86 98 Room Air I & O 03/30/22 07:00 Intake Total 4785 ml Output Total 2200 ml Balance 2585 ml Capillary Refill : Less Than 3 Seconds General Appearance: No Apparent Distress, WD/WN HEENT: PERRL/EOMI Respiratory: Lungs Clear, Normal Breath Sounds, No Accessory Muscle Use, No Respiratory Distress, Other (Large cystic lesion over the superior sternal region) Cardiovascular: Regular Rate, Rhythm, No Murmur Peripheral Pulses: 2+ Dorsalis Pedis (R), 2+ Left Dors-Pedis (L) Gastrointestinal: non tender, soft, hernia (small umbilical) Extremity: No Calf Tenderness, No Pedal Edema Neurologic/Psychiatric: Alert, Oriented x3, Depressed Affect Skin: Normal Color, Other (packed wound on R groin, no purulent discharge noted, some surrounding erythema ) Results Lab Laboratory Tests 03/29/22 15:43: Glucometer 241H 03/29/22 20:32: Glucometer 253H 03/30/22 05:33: White Blood Count 5.2, Red Blood Count 4.49, Hemoglobin 13.1L, Hematocrit 39L, Mean Corpuscular Volume 88, Mean Corpuscular Hemoglobin 29, Mean Corpuscular Hemoglobin Concent 33, Red Cell Distribution Width 12.8, Platelet Count 281, Mean Platelet Volume 10.1, Immature Granulocyte % (Auto) 1, Neutrophils (%) (Auto) 65, Lymphocytes (%) (Auto) 24, Monocytes (%) (Auto) 10, Eosinophils (%) (Auto) 0, Basophils (%) (Auto) 1, Neutrophils # (Auto) 3.4, Lymphocytes # (Auto) 1.3, Monocytes # (Auto) 0.5, Eosinophils # (Auto) 0.0, Basophils # (Auto) 0.0, Immature Granulocyte # (Auto) 0.0, Sodium Level 139, Potassium Level 3.7, Chloride Level 107, Carbon Dioxide Level 21, Anion Gap 11, Blood Urea Nitrogen 8, Creatinine 0.92, Estimat Glomerular Filtration Rate 100, BUN/Creatinine Ratio 9, Glucose Level 219H, Calcium Level 8.9, Corrected Calcium 9.4, Total Bilirubin 0.5, Aspartate Amino Transf (AST/SGOT) 11, Alanine Aminotransferase (ALT/SGPT) 15, Alkaline Phosphatase 57, Total Protein 6.2L, Albumin 3.4 03/30/22 10:28: Glucometer 245H Microbiology 03/29/22 Gram Stain - Final, Resulted 03/29/22 Anaerobic Culture, Resulted Pending 03/29/22 Surgical Culture, Resulted Pending 03/29/22 Fungal Culture 1, Resulted Pending Assessment/Plan Assessment/Plan Assessment/Plan Right groin Abscess with gas in cavity DM I&D with debridement of right groin abscess Pt had an I&D with debridement yesterday. Currently, wound is packed and without purulent drainage or fluctuance. Cultures are pending.Will continue to monitor, consider consult to wound care. Pt tolerating clears, consider progressing diet. Encourage ambulation. Continue IV abx and pain control PITO Rader DO 03/30/22 1244: Subjective Time Seen by a Provider: 12:19 Subjective/Events-last exam Pt seen and examined, does not appear to be in any distress. Pain is controlled Review of Systems General: No Chills, No Malaise Pulmonary: No Dyspnea, No Cough Cardiovascular: No: Chest Pain, Edema Gastrointestinal: No: Nausea, Vomiting, Abdominal Pain Musculoskeletal: other (groin pain) Objective Exam General Appearance: No Apparent Distress, Obese HEENT: PERRL/EOMI Respiratory: Lungs Clear, Normal Breath Sounds, No Accessory Muscle Use, No Respiratory Distress Cardiovascular: Regular Rate, Rhythm, No Murmur Gastrointestinal: non tender, soft, hernia (small umbilical) Extremity: No Calf Tenderness, No Pedal Edema Neurologic/Psychiatric: Alert, Oriented x3, Depressed Affect Skin: Other (packed wound on R groin, no purulent discharge noted, some surrounding erythema ) Assessment/Plan Assessment/Plan Assessment/Plan Right groin Abscess with gas in cavity DM I&D with debridement of right groin abscess Pt had an I&D with debridement yesterday. Currently, wound is packed and without purulent drainage or fluctuance. Cultures are pending.Will continue to monitor, consider consult to wound care and possible Home Health. Pt tolerating clears, consider progressing diet. Encourage ambulation. Continue IV abx and pain control prn Supervisory-Addendum Brief Verification & Attestation Participated in pt care: history, MDM, physical Personally performed: exam, history, MDM, supervision of care Care discussed with: Medical Student Procedures: n/a Verification and Attestation of Medical Student E/M Service A medical student performed and documented this service. I then reviewed and verified all information documented by the medical student and made modifications to such information, when appropriate. I personally performed a physical exam, medical decision making and then discussed any differences between the notes and made revisions as necessary to create one note. Pito Raphael , 03/30/22 , 12:44 FLAVIO TAPIA Mar 30, 2022 11:21 PITO RAPHAEL DO Mar 30, 2022 12:44
[2022-03-30 11:38] VITALS: BP 131/79
[2022-03-30 14:13] VITALS: BP 118/60
[2022-03-30 16:41] VITALS: BP 135/73
[2022-03-30 19:53] VITALS: BP 150/71
[2022-03-30] MEDS: ENOXAPARIN 40 MG/0.4 ML (LOVENOX) SYR SC SCH (23:03)
[2022-03-31] VITALS: BP 127/73
[2022-03-31 03:33] VITALS: BP 135/63
[2022-03-31 05:56] LABS: BASOPHILS % (AUTO) 1 % (0-10); EOSINOPHILS % (AUTO) 0 % (0-10); HEMATOCRIT 38 % (40-54); HEMOGLOBIN 12.8 g/dL (13.3-17.7); LYMPHOCYTES # (AUTO) 1.4 10^3/uL (1.0-4.0); LYMPHOCYTES % (AUTO) 31 % (12-44); MEAN CORPUSCULAR HEMOGLOBIN 29 pg (25-34); MEAN CORPUSCULAR HGB CONC 33 g/dL (32-36); MEAN CORPUSCULAR VOLUME 88 fL (80-99); MEAN PLATELET VOLUME 9.9 fL (9.0-12.2); MONOCYTES # (AUTO) 0.4 10^3/uL (0.0-1.0); MONOCYTES % (AUTO) 9 % (0-12); NEUTROPHILS # (AUTO) 2.8 10^3/uL (1.8-7.8); NEUTROPHILS % (AUTO) 59 % (42-75); PLATELET COUNT 281 10^3/uL (130-400); WHITE BLOOD COUNT 4.7 10^3/uL (4.3-11.0)
[2022-03-31 06:29] LABS: ALBUMIN 3.4 GM/DL (3.2-4.5); BILIRUBIN,TOTAL 0.4 MG/DL (0.1-1.0); CREATININE SERUM 0.85 MG/DL (0.60-1.30); POTASSIUM 3.4 MMOL/L (3.6-5.0); TOTAL PROTEIN 6.2 GM/DL (6.4-8.2)
--- NOTE | 2022-03-31 07:32 | Progress Note - Surgery ---
REGINAFLAVIO 03/31/22 0732: Subjective Date Seen by a Provider: Mar 31, 2022 Time Seen by a Provider: 07:26 Subjective/Events-last exam Pt is resting comfortably in bed. Pt states improvement of pain today, rating it a 1 or 2/10. Pt ambulated yesterday without issue. Pt is tolerating diet well. Pt continues to void without issue and had a BM yesterday. Pt has no complaints at this time. Pt denies nausea, vomiting, CP, SOB, abd pain, diarrhea, chills, ATKINS, and lightheadedness. Review of Systems General: No Chills, No Night Sweats HEENT: No Head Aches, No Visual Changes Pulmonary: No Dyspnea, No Cough Cardiovascular: No: Chest Pain, Lt Headedness Gastrointestinal: No: Nausea, Vomiting, Abdominal Pain, Diarrhea Genitourinary: No Dysuria, No Hematuria Musculoskeletal: other (groin pain); No: neck pain Neurological: No: Weakness, Numbness Focused Exam Lactate Level 03/29/22 08:26: Lactic Acid Level 1.35 Objective Exam Vital Signs Date Time Temp Pulse Resp B/P (MAP) Pulse Ox O2 Delivery O2 Flow Rate FiO2 03/31/22 03:33 36.3 72 16 135/63 (87) 95 Room Air 03/31/22 00:00 37.1 66 16 127/73 (91) 96 Room Air 03/30/22 19:53 36.7 73 18 150/71 (97) 95 Room Air 03/30/22 16:41 37.1 72 18 135/73 (93) Room Air 03/30/22 14:13 36.6 85 17 118/60 (79) 95 Room Air 03/30/22 11:38 36.0 82 16 131/79 (96) 98 Room Air 03/30/22 08:32 Room Air 0.00 03/30/22 08:00 73 22 135/71 (92) 98 Room Air 03/30/22 08:00 94 Room Air I & O 03/31/22 07:00 Intake Total 650 ml Output Total 1200 ml Balance -550 ml Capillary Refill : Less Than 3 Seconds General Appearance: No Apparent Distress, Chronically ill, Obese HEENT: PERRL/EOMI Respiratory: Lungs Clear, Normal Breath Sounds, No Accessory Muscle Use, No Respiratory Distress Cardiovascular: Regular Rate, Rhythm, No Murmur Peripheral Pulses: 2+ Dorsalis Pedis (R), 2+ Left Dors-Pedis (L) Gastrointestinal: non tender, soft, hernia (small umbilical) Extremity: No Calf Tenderness, No Pedal Edema Neurologic/Psychiatric: Alert, Oriented x3, Depressed Affect (improved) Skin: Warm/Dry, Other (wound in groin looks dry and intact. No erythema or drainage noted) Lymphatic: No Adenopathy Results Lab Laboratory Tests 03/30/22 10:28: Glucometer 245H 03/30/22 16:47: Glucometer 204H 03/30/22 20:02: Glucometer 159H 03/31/22 05:14: White Blood Count 4.7, Red Blood Count 4.37, Hemoglobin 12.8L, Hematocrit 38L, Mean Corpuscular Volume 88, Mean Corpuscular Hemoglobin 29, Mean Corpuscular Hemoglobin Concent 33, Red Cell Distribution Width 12.4, Platelet Count 281, Mean Platelet Volume 9.9, Immature Granulocyte % (Auto) 1, Neutrophils (%) (Auto) 59, Lymphocytes (%) (Auto) 31, Monocytes (%) (Auto) 9, Eosinophils (%) (Auto) 0, Basophils (%) (Auto) 1, Neutrophils # (Auto) 2.8, Lymphocytes # (Auto) 1.4, Monocytes # (Auto) 0.4, Eosinophils # (Auto) 0.0, Basophils # (Auto) 0.0, Immature Granulocyte # (Auto) 0.0, Sodium Level 140, Potassium Level 3.4L, Chloride Level 107, Carbon Dioxide Level 22, Anion Gap 11, Blood Urea Nitrogen 11, Creatinine 0.85, Estimat Glomerular Filtration Rate 105, BUN/Creatinine Ratio 13, Glucose Level 214H, Calcium Level 9.0, Corrected Calcium 9.5, Total Bilirubin 0.4, Aspartate Amino Transf (AST/SGOT) 10, Alanine Aminotransferase (ALT/SGPT) 15, Alkaline Phosphatase 58, Total Protein 6.2L, Albumin 3.4 03/31/22 06:11: Glucometer 211H Microbiology 03/29/22 Gram Stain - Final, Resulted 03/29/22 Anaerobic Culture, Resulted Pending 03/29/22 Surgical Culture - Preliminary, Resulted No growth 03/29/22 Fungal Culture 1, Resulted Pending 03/29/22 Blood Culture - Preliminary, Resulted No growth Assessment/Plan Assessment/Plan Assessment/Plan Right groin Abscess with gas in cavity DM I&D with debridement of right groin abscess Pt is doing well. Groin wound looks dry and intact. There is no erythema or drainage noted and minimal pain, per pt. Cultures are still pending. Pt tolerating diet well and ambulating without issue. Consider DC with f/u to wound care or possible home health. Continue abx and pain control prn PITO DALEY DO 03/31/22 1526: Subjective Time Seen by a Provider: 13:46 Subjective/Events-last exam Pt seen and examined, has only minimal pain. His main question is how is the wound going to be taken care of. Review of Systems Pulmonary: No Dyspnea, No Cough Cardiovascular: No: Chest Pain Gastrointestinal: No: Nausea, Vomiting, Abdominal Pain Musculoskeletal: other (groin pain) Objective Exam General Appearance: No Apparent Distress, Obese HEENT: PERRL/EOMI Respiratory: Lungs Clear, Normal Breath Sounds, No Accessory Muscle Use, No Res piratory Distress Cardiovascular: Regular Rate, Rhythm, No Murmur Gastrointestinal: non tender, soft, hernia (small umbilical) Extremity: No Calf Tenderness, No Pedal Edema Neurologic/Psychiatric: Alert, Oriented x3, Depressed Affect (improved) Skin: Warm/Dry, Other (wound in groin looks dry and intact. No erythema or drainage noted) Assessment/Plan Assessment/Plan Assessment/Plan Right groin Abscess with gas in cavity DM I&D with debridement of right groin abscess Pt is doing well. Groin wound looks dry and intact. There is no erythema or drainage noted and minimal pain, per pt. Cultures are still pending. Pt tolerating diet well and ambulating without issue. Consider DC with f/u to wound care or possible home health. Continue abx and pain control prn Supervisory-Addendum Brief Verification & Attestation Participated in pt care: history, MDM, physical Personally performed: exam, history, MDM, supervision of care Care discussed with: Medical Student Procedures: n/a Verification and Attestation of Medical Student E/M Service A medical student performed and documented this service. I then reviewed and verified all information documented by the medical student and made modifications to such information, when appropriate. I personally performed a physical exam, medical decision making and then discussed any differences between the notes and made revisions as necessary to create one note. Pito Daley , 03/31/22 , 15:26 FLAVIO TAPIA Mar 31, 2022 07:32 PITO DALEY DO Mar 31, 2022 15:26
[2022-03-31 07:41] VITALS: BP 116/62
[2022-03-31] MEDS: CLINDAMYCIN 900 MG/50 ML IVPB 50 ML IV SCH ×3 (07:49→21:43)
[2022-03-31] MEDS: glyBURIDE 2.5 MG (MICRONASE) TAB PO SCH (07:50)
[2022-03-31] MEDS: inSUlin ASPART (NovoLOG) 1 UNIT/0.01 ML (CHARGE PER UNIT) SC SCH ×4 (07:50→20:50)
[2022-03-31] MEDS: SENNA W/DOCUSATE (SENOKOT S) TABLET PO SCH ×2 (08:53→20:58)
[2022-03-31] MEDS: PANTOPRAZOLE 40 MG (PROTONIX) TAB PO SCH (08:53)
[2022-03-31] MEDS ORDERED: CINN500C2 PO (10:11)
[2022-03-31] MEDS ORDERED: METF-397 PO (10:11)
[2022-03-31] MEDS ORDERED: FEXO180T84 PO (10:11)
[2022-03-31 11:18] VITALS: BP 134/69
--- NOTE | 2022-03-31 14:19 | Anesthesia-General Post-Op ---
General Patient Condition Mental Status/LOC: Same as Preop Cardiovascular: Satisfactory Nausea/Vomiting: Absent Respiratory: Satisfactory Pain: Controlled Complications: Absent Post Op Complications Complications None Follow Up Care/Instructions Patient Instructions None needed. Anesthesia/Patient Condition Patient Condition Patient is doing well after his surgery with no complaints, stable vital signs, no apparent adverse anesthesia problems. He states he is to be discharged to home today. No complications reported per nursing. MARISA OSORIO DO Mar 31, 2022 14:19
[2022-03-31 15:37] VITALS: BP 132/73
[2022-03-31 19:26] VITALS: BP 131/72
--- NOTE | 2022-03-31 20:24 | Progress Note - Hospitalist ---
Subjective HPI/CC On Admission Date Seen by Provider: Mar 31, 2022 Time Seen by Provider: 10:00 CC: Groin abscess HPI: This is a 51yoWM patient not yet established with [facility] until 04/10/22 who has no local doctor who only goes to walk in clinic who presents to the ER with groin abscess and required an I&D by Dr Raphael yesterday and is doing much better today. His sugars are very high and only takes Metformin. OHA will be initiated. Subjective/Events-last exam Patient doing a lot better Appreciate general surgery Packed the wound Review of Systems General: Fatigue, Malaise Focused Exam Lactate Level 03/29/22 08:26: Lactic Acid Level 1.35 Objective Exam Vital Signs Vital Signs Date Time Temp Pulse Resp B/P (MAP) Pulse Ox O2 Delivery O2 Flow Rate FiO2 04/01/22 03:49 36.8 75 18 131/68 (89) 96 Room Air 03/30/22 08:32 0.00 Capillary Refill : Less Than 3 Seconds General Appearance: No Apparent Distress, WD/WN, Chronically ill Respiratory: Lungs Clear, Normal Breath Sounds Results/Procedures Lab Laboratory Tests 03/31/22 05:14 Patient resulted labs reviewed. 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
[2022-03-31] MEDS: ENOXAPARIN 40 MG/0.4 ML (LOVENOX) SYR SC SCH (20:49)
[2022-04-01] VITALS: BP 148/79
[2022-04-01 03:49] VITALS: BP 131/68
[2022-04-01] MEDS: CLINDAMYCIN 900 MG/50 ML IVPB 50 ML IV SCH ×2 (05:13→11:45)
[2022-04-01] MEDS: glyBURIDE 2.5 MG (MICRONASE) TAB PO SCH (05:53)
[2022-04-01] MEDS: inSUlin ASPART (NovoLOG) 1 UNIT/0.01 ML (CHARGE PER UNIT) SC SCH ×2 (05:53→11:43)
[2022-04-01 06:26] LABS: BASOPHILS % (AUTO) 1 % (0-10); EOSINOPHILS % (AUTO) 0 % (0-10); HEMATOCRIT 38 % (40-54); HEMOGLOBIN 12.7 g/dL (13.3-17.7); LYMPHOCYTES # (AUTO) 1.5 10^3/uL (1.0-4.0); LYMPHOCYTES % (AUTO) 27 % (12-44); MEAN CORPUSCULAR HEMOGLOBIN 29 pg (25-34); MEAN CORPUSCULAR HGB CONC 33 g/dL (32-36); MEAN CORPUSCULAR VOLUME 88 fL (80-99); MEAN PLATELET VOLUME 10.1 fL (9.0-12.2); MONOCYTES # (AUTO) 0.5 10^3/uL (0.0-1.0); MONOCYTES % (AUTO) 9 % (0-12); NEUTROPHILS # (AUTO) 3.4 10^3/uL (1.8-7.8); NEUTROPHILS % (AUTO) 63 % (42-75); PLATELET COUNT 299 10^3/uL (130-400); WHITE BLOOD COUNT 5.4 10^3/uL (4.3-11.0)
[2022-04-01 06:49] LABS: ALBUMIN 3.4 GM/DL (3.2-4.5); BILIRUBIN,TOTAL 0.4 MG/DL (0.1-1.0); POTASSIUM 3.6 MMOL/L (3.6-5.0); TOTAL PROTEIN 6.5 GM/DL (6.4-8.2)
[2022-04-01 07:01] LABS: CALCIUM 8.7 MG/DL (8.5-10.1)
[2022-04-01 07:15] VITALS: BP 134/67
--- NOTE | 2022-04-01 08:43 | Progress Note - Surgery ---
REGINAFLAVIO 04/01/22 0842: Subjective Date Seen by a Provider: Apr 01, 2022 Time Seen by a Provider: 07:57 Subjective/Events-last exam Pt is resting comfortably in bed. Pt denies any pain today. Pt has been tolerating diet and continues to void and have BMs without issue. Pt continues to ambulate without issue. Pt's preliminary results from his wound culture showed mixed bacterial jordana and no anaerobes or fungi. Wound looks dry and intact but was missing packing on examination. When asked, pt states that he removed his packing from his wound last night because he saw the string and wanted to pull it. Pt has no complaints at this time. Pt inquires about going home. Pt denies nausea, vomiting, cough, ATKINS, lightheadedness, abd pain, diarrhea, CP, and SOB. Review of Systems General: No Chills, No Night Sweats HEENT: No Head Aches, No Eye Pain Pulmonary: No Dyspnea, No Cough Cardiovascular: No: Chest Pain, Lt Headedness Gastrointestinal: No: Nausea, Vomiting, Abdominal Pain, Diarrhea Genitourinary: No Dysuria, No Hematuria Musculoskeletal: No: neck pain, shoulder pain Neurological: No: Weakness, Numbness Objective Exam Vital Signs Date Time Temp Pulse Resp B/P (MAP) Pulse Ox O2 Delivery O2 Flow Rate FiO2 04/01/22 07:15 36.6 67 18 134/67 (89) 96 Room Air 04/01/22 03:49 36.8 75 18 131/68 (89) 96 Room Air 04/01/22 00:00 36.0 67 18 148/79 (102) 95 Room Air 03/31/22 20:00 Room Air 03/31/22 19:26 36.7 77 19 131/72 (91) 96 Room Air 03/31/22 15:37 36.5 72 18 132/73 (92) 94 Room Air 03/31/22 11:18 36.2 74 18 134/69 (90) 96 Room Air 03/31/22 09:39 Room Air I & O 04/01/22 07:00 Intake Total 1820 ml Output Total 1 ml Balance 1819 ml Capillary Refill : Less Than 3 Seconds General Appearance: No Apparent Distress, WD/WN HEENT: PERRL/EOMI Respiratory: Lungs Clear, Normal Breath Sounds, No Accessory Muscle Use, No Respiratory Distress Cardiovascular: Regular Rate, Rhythm, No Murmur Peripheral Pulses: 2+ Dorsalis Pedis (R), 2+ Left Dors-Pedis (L) Gastrointestinal: non tender, soft, hernia (small umbilical) Extremity: No Calf Tenderness, No Pedal Edema Neurologic/Psychiatric: Alert, Oriented x3, Depressed Affect (improved) Skin: Warm/Dry, Other (wound in R groin looks dry and intact. No erythema or drainage noted) Lymphatic: No Adenopathy Results Lab Laboratory Tests 03/31/22 10:17: Glucometer 186H 03/31/22 15:39: Glucometer 130H 03/31/22 20:19: Glucometer 246H 04/01/22 05:42: Glucometer 238H 04/01/22 06:15: White Blood Count 5.4, Red Blood Count 4.33, Hemoglobin 12.7L, Hematocrit 38L, Mean Corpuscular Volume 88, Mean Corpuscular Hemoglobin 29, Mean Corpuscular Hemoglobin Concent 33, Red Cell Distribution Width 12.5, Platelet Count 299, Mean Platelet Volume 10.1, Immature Granulocyte % (Auto) 1, Neutrophils (%) (Auto) 63, Lymphocytes (%) (Auto) 27, Monocytes (%) (Auto) 9, Eosinophils (%) (Auto) 0, Basophils (%) (Auto) 1, Neutrophils # (Auto) 3.4, Lymphocytes # (Auto) 1.5, Monocytes # (Auto) 0.5, Eosinophils # (Auto) 0.0, Basophils # (Auto) 0.0, Immature Granulocyte # (Auto) 0.0, Sodium Level 138, Potassium Level 3.6, Chloride Level 106, Carbon Dioxide Level 25, Anion Gap 7, Blood Urea Nitrogen 12, Creatinine 1.00, Estimat Glomerular Filtration Rate 91, BUN/Creatinine Ratio 12, Glucose Level 292H, Calcium Level 8.7, Corrected Calcium 9.2, Total Bilirubin 0.4, Aspartate Amino Transf (AST/SGOT) 20, Alanine Aminotransferase (ALT/SGPT) 24, Alkaline Phosphatase 69, Total Protein 6.5, Albumin 3.4 Microbiology 03/29/22 Gram Stain - Final, Resulted 03/29/22 Anaerobic Culture - Preliminary, Resulted No anaerobes isolated 03/29/22 Surgical Culture - Preliminary, Resulted Culture In Progress 03/29/22 Fungal Culture 1 - Preliminary, Resulted See Comments 03/29/22 Blood Culture - Preliminary, Resulted No growth Assessment/Plan Assessment/Plan Assessment/Plan Right groin Abscess with gas in cavity DM I&D with debridement of right groin abscess Pt is doing well. Groin wound looks dry and intact, no erythema or drainage noted, and no pain. Preliminary culture results showed mixed bacterial jordana, no anaerobes, and no fungi. Pt tolerating diet well and ambulating without issue. Per nurse, elementary school social worker is working on setting up home health for the pt. Consider D/C once home health has been set up. Continue abx and pain control prn until D/C then send home with oral abx and pain medication. PATI DALEY DO 04/01/22 1140: Subjective Time Seen by a Provider: 11:16 Subjective/Events-last exam Pt seen and examined, he denies pain and is up moving around. Review of Systems General: No Chills, No Night Sweats Pulmonary: No Dyspnea, No Cough Gastrointestinal: No: Nausea, Vomiting, Abdominal Pain Objective Exam General Appearance: No Apparent Distress, Obese HEENT: PERRL/EOMI Respiratory: Lungs Clear, Normal Breath Sounds, No Accessory Muscle Use, No Respiratory Distress Cardiovascular: Regular Rate, Rhythm, No Murmur Gastrointestinal: non tender, soft, hernia (small umbilical) Extremity: No Calf Tenderness, No Pedal Edema Neurologic/Psychiatric: Alert, Oriented x3, Depressed Affect (improved) Skin: Warm/Dry, Other (wound in R groin looks dry and intact. No erythema or drainage noted) Assessment/Plan Assessment/Plan Assessment/Plan S/P I&D of Right groin Abscess DM Pt is doing well. Groin wound looks dry and intact, no erythema or drainage noted, and no pain. Preliminary culture results showed mixed bacterial jordana, no anaerobes, and no fungi. Will D/C pt and Rx abx and pain control. Pt is being set up with [facility] and can come to my office to have wound packed or for help. Supervisory-Addendum Brief Verification & Attestation Participated in pt care: history, MDM, physical Personally performed: exam, history, MDM, supervision of care Care discussed with: Medical Student Procedures: n/a Verification and Attestation of Medical Student E/M Service A medical student performed and documented this service. I then reviewed and verified all information documented by the medical student and made modifications to such information, when appropriate. I personally performed a physical exam, medical decision making and then discussed any differences between the notes and made revisions as necessary to create one note. Pati Daley , 04/01/22 , 11:40 FLAVIO TAPIA Apr 01, 2022 08:42 PATI DALEY DO Apr 01, 2022 11:40
[2022-04-01] MEDS: PANTOPRAZOLE 40 MG (PROTONIX) TAB PO SCH (08:55)
[2022-04-01] MEDS: SENNA W/DOCUSATE (SENOKOT S) TABLET PO SCH (08:55)
[2022-04-01] MEDS ORDERED: CLIN-144 PO (09:32)
[2022-04-01] MEDS ORDERED: GLBR2.5T PO (09:32)
--- NOTE | 2022-04-01 09:34 | Discharge Summary ---
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 Raphael. Packing initiated along with IV antibiotics. He was deemed stable for discharge on additional diabetic meds and clindamycin. Labs and Pending Lab Test: Laboratory Tests 03/31/22 10:17: Glucometer 186H 03/31/22 15:39: Glucometer 130H 03/31/22 20:19: Glucometer 246H 04/01/22 05:42: Glucometer 238H 04/01/22 06:15: White Blood Count 5.4, Red Blood Count 4.33, Hemoglobin 12.7L, Hematocrit 38L, Mean Corpuscular Volume 88, Mean Corpuscular Hemoglobin 29, Mean Corpuscular Hemoglobin Concent 33, Red Cell Distribution Width 12.5, Platelet Count 299, Mean Platelet Volume 10.1, Immature Granulocyte % (Auto) 1, Neutrophils (%) (Auto) 63, Lymphocytes (%) (Auto) 27, Monocytes (%) (Auto) 9, Eosinophils (%) (Auto) 0, Basophils (%) (Auto) 1, Neutrophils # (Auto) 3.4, Lymphocytes # (Auto) 1.5, Monocytes # (Auto) 0.5, Eosinophils # (Auto) 0.0, Basophils # (Auto) 0.0, Immature Granulocyte # (Auto) 0.0, Sodium Level 138, Potassium Level 3.6, Chloride Level 106, Carbon Dioxide Level 25, Anion Gap 7, Blood Urea Nitrogen 12, Creatinine 1.00, Estimat Glomerular Filtration Rate 91, BUN/Creatinine Ratio 12, Glucose Level 292H, Calcium Level 8.7, Corrected Calcium 9.2, Total Bilirubin 0.4, Aspartate Amino Transf (AST/SGOT) 20, Alanine Aminotransferase (ALT/SGPT) 24, Alkaline Phosphatase 69, Total Protein 6.5, Albumin 3.4 Microbiology 03/29/22 Gram Stain - Final, Resulted 03/29/22 Anaerobic Culture - Preliminary, Resulted No anaerobes isolated 03/29/22 Surgical Culture - Preliminary, Resulted Culture In Progress 03/29/22 Fungal Culture 1 - Preliminary, Resulted See Comments 03/29/22 Blood Culture - Preliminary, Resulted No growth Home Meds Active Reported Margi Allergy (Fexofenadine HCl) 180 Mg Tablet 180 Mg PO DAILY PRN Cinnamon (Cinnamon Bark) 500 Mg Capsule 1,000 Mg PO TID Metformin HCl 500 Mg Tablet 500 Mg PO DAILY W/MEAL Assessment/Pt Instructions PCP in 1 week Discharge Planning: <30 minutes discharge planning Discharge Instructions Discharge Diet: ADA Diet Activity as Tolerated: Yes Discharge Physical Examination Vital Signs Vital Signs Date Time Temp Pulse Resp B/P (MAP) Pulse Ox O2 Delivery O2 Flow Rate FiO2 04/01/22 07:15 36.6 67 18 134/67 (89) 96 Room Air 03/30/22 08:32 0.00 General Appearance: No Apparent Distress, WD/WN Allergies: Coded Allergies: codeine (Verified Adverse Reaction, Unknown, torsten, 03/29/22) Discharge Summary Date of Admission Mar 29, 2022 at 15:36 Date of Discharge Discharge Date: Apr 01, 2022 Admission Diagnosis Assessment: Groin abscess s/p I&D POD # 1 DM OOC Apathy Plan: OHA Monitor labs Pain control IV abx Discharge Diagnosis Assessment: Groin abscess status post incision and drainage Diabetes [id number] Plan: IV antibiotics Diabetic management (1) Abscess of right groin Status: Acute (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
--- NOTE | 2022-04-01 09:36 | D/C HH Face to Face Order ---
D/C Face to Face Orders Reconcile Patient Problems Problems Reviewed?: Yes Instructions for Patient Via [facility], Patient Instructions/FollowUp: [facility] 04/10 Physician to follow Patient: [facility] Discharge Diet for Home: ADA Diet Patient Problems: DM OOC Groin abscess Patient Data-Allergies,Ht & Wt Patient Allergies: Coded Allergies: codeine (Verified Adverse Reaction, Unknown, shakes, 03/29/22) Height (Feet): 6 Height (Inches): 2.00 Weight (Pounds): 270 Home Health Need/Face to Face Date of Face to Face: Apr 01, 2022 Clinical Findings: Generalized weakness and fatigue, Wound infection I have seen Pt [id number]: Yes Discharged To: Home Diagnosis/Conditions: Groin abscess Patient is Homebound due to: Pain w/ambulation Homebound Status Due to the above stated illness, injury or surgical procedure (medical condition or diagnosis) and associated clinical findings, the patient is homebound because of his/her inability to leave home except with aid of a supportive device and/or person AND leaving the home requires a considerable and taxing effort or is medically contraindicated. Pt req the following assistanc: [facility] Nursing Orders Home Health Services Order: Nursing Services Home Health Infusion Therapy Line Start Date: Mar 29, 2022 Certify Stmt I certify that this patient is under my care and that I, a nurse practitioner or a physician; a optometric assistant working with me, had a face to face encounter that - meets the physician face to face encounter requirements with this patient as dated. KENNY BROCK DO Apr 01, 2022 09:36
[2022-04-01 11:21] VITALS: BP 141/74
--- NOTE | 2022-04-01 11:42 | Discharge Inst-Surgical ---
Discharge Inst-Surgical Depart Medication/Instructions New, Converted or Re-Newed RX: Transmitted to Pharmacy Patient Instructions Follow up Appt: Make appointment for 1 week. [phone] Instructions: May shower in 24 hours, no tub bath or soaking. Use incentive spirometer at home as directed. No Smoking Skin/Wound Care: May remove bandages in am. You need to clean, dry and pack incision daily. Symptoms to Report: Appetite Changes, Extremity Discoloration, Numbness/Tingling, Swelling Increased, Bleeding Excessive, Eyesight Changes, Pain Increased, Urine Color Change, Constipation(Persistent), Fever over 101 degree F, Pain/Pressure in chest, Urinating Difficulty, Cough Up/Vomit Blood, Heart Beat Irreg/Pounding, Pain/Pressure in jaw, Cramps in feet or legs, Lightheadedness, Pain/Pressure in shoulder, Diarrhea(Persistent), Memory Changes Suddenly, Questions/Concerns, Weight gain consecutive days, Dizziness/Fainting, Nausea/Vomiting, Shortness of Breath, Weight gain over 2 pounds If questions or concerns contact your physician Or seek help at emergency department. Activity Activity as Tolerated: Yes Driving Instructions: You May Drive Diet Discharge Diet: No Restrictions Diet After 24 Hours: Clear Liquid if Nauseous If Any Problems/Questions/Issu: Contact Your Physician, Go to Emergency Room Skin/Wound Care Infection Signs and Symptoms: Increased Redness, Foul Odor of Wound, Increased Drainage, Skin Itchy or Has a Rash, Increased Swelling, Temperature Above 101 F Wound Care Comment: Pack daily with Iodophor Bathing Instructions: Shower Operative Area Clean and Dry: Keep Incision Clean/Dry PATI DALEY DO Apr 01, 2022 11:41
[2022-04-01 12:53] VITALS: BP 141/74
== END 2022-04-01 12:55 | disposition home health service (06) | DRG 717 ==
LOC: EDUNIT# 04:20 → ER 04:24 → CSD 10:46 → OBSVTOIN 15:36 → 4TH 03-30 13:17
PROVIDERS: ADMIT Surgery; ATTEND Surgery
PROC: 0J9C0ZZ Drainage of Pelvic Region Subcutaneous Tissue and Fascia, Open Approach (ICD-10-PCS; 2022-03-29)
PROC: 0JBC0ZZ Excision of Pelvic Region Subcutaneous Tissue and Fascia, Open Approach (ICD-10-PCS; principal; 2022-03-29 11:34)
DX: N49.3 Fournier gangrene (principal); L02.214 Cutaneous abscess of groin; E11.65 Type 2 diabetes mellitus with hyperglycemia; Z79.84 Long term (current) use of oral hypoglycemic drugs; Z23 Encounter for immunization
CPT/HCPCS: 36415; 72193; 80053; 82947; 83036; 83605; 85025; 86141; 87040; 87070; 87075; 87077; 87101; 87205; 90686

== ENCOUNTER 2022-05-14 05:49 | Outpatient (CLI) | payer SELFPAY ==
[~2022-05-14] VITALS: Ht 188 cm; Wt 121.1 kg
[~2022-05-14 05:49] MED LIST changes: +CINN500C2 PO; +CLIN-144 PO; +FEXO180T84 PO; +GLBR2.5T PO
[2022-05-14] MEDS ORDERED: OMEG1CAP24 PO (12:30)
[2022-05-14] MEDS ORDERED: MULT-1136 PO (12:30)
== END 2022-05-14 12:36 | disposition home or self-care (01) ==
LOC: PREOP 05:49
PROVIDERS: ATTEND Surgery
DX: Z01.818 Encounter for other preprocedural examination (principal)

== ENCOUNTER 2022-05-21 08:23 | Day surgery (SDC) | payer OTHER ==
[2022-05-21] VITALS (11 sets, daily range): BP systolic 91–146; BP diastolic 47–90
[~2022-05-21] VITALS: Ht 187.9 cm; Wt 121.1 kg
[~2022-05-21 08:23] MED LIST changes: +MULT-1136 PO; +OMEG1CAP24 PO
[2022-05-21] MEDS ORDERED: LIDOCAINE/EPI 1%-1:100,000 (XYLOCAINE) 30ML ONE (08:37)
--- NOTE | 2022-05-21 08:56 | Progress Note-Pre Operative ---
Pre-Operative Progress Note Date of Available H&P: May 06, 2022 Date H&P Reviewed: May 21, 2022 Time H&P Reviewed: 08:47 History & Physical: H&P Reviewed, Patient Examed, No changes noted Pre-Operative Diagnosis: chest mass, initialed next to it PATI DALEY DO May 21, 2022 08:56
[2022-05-21] MEDS ORDERED: ceFAZolin INJECTION 2,000 MG in NS (IVPB) 50 ML IV ONE (09:00)
[2022-05-21] MEDS ORDERED: LACTATED RINGERS 1,000 ML IV PRN (09:00)
[2022-05-21] MEDS ORDERED: fentaNYL INJ 100 MCG/2 ML AMP ONE (09:13)
[2022-05-21] MEDS ORDERED: proPOfol 200 MG/20 ML (DIPRIVAN) VIAL IV ONE (09:13)
[2022-05-21] MEDS ORDERED: LIDOCAINE PF 2% 5 ML (XYLOCAINE) VIAL ONE (09:13)
[2022-05-21] MEDS ORDERED: MIDAZOLAM 2 MG/2 ML (VERSED) VIAL ONE (09:13)
[2022-05-21] MEDS ORDERED: SEVOFLURANE (ULTANE) 15 ML INHAL SOLN ONE ×2 (09:13→10:18)
[2022-05-21] MEDS ORDERED: ONDANSETRON 4 MG/2 ML (SDV) Z0FRAN ONE (09:13)
[2022-05-21] MEDS ORDERED: PHENYLEPHRINE 100 MCG/ML 10 ML (ANESTHESIA) SYR ONE (10:02)
--- NOTE | 2022-05-21 10:22 | Progress Note-Post Operative ---
Post-Operative Progess Note Surgeon (s)/Park Landscape Architect (s) Surgeon PATI DALEY DO Park Landscape Architect: WILLOW Bowen Pre-Operative Diagnosis chest mass, initialed next to it Post-Operative Diagnosis chest mass pending pathology Procedure & Operative Findings Date of Procedure 05/21/22 Procedure Performed/Findings Excision of subQ mass down to fascia, 8.5cm incision Anesthesia Type LMA Estimated Blood Loss Estimated blood loss (mL): less than 5ml Specimens/Packing Specimens Removed chest mass, measuring appx 9x5x5 cm PATI DALEY DO May 21, 2022 10:22
[2022-05-21] MEDS ORDERED: ACHD5005 PO (10:23)
--- NOTE | 2022-05-21 10:24 | Discharge Inst-Surgical ---
Discharge Inst-Surgical Depart Medication/Instructions New, Converted or Re-Newed RX: Transmitted to Pharmacy Patient Instructions Follow up Appt: Make appointment for 1 week. [phone] Instructions: No lifting greater than 20 pounds. No strenuous activity. May shower in 24 hours, no tub bath or soaking. Use incentive spirometer at home as directed. No Smoking Skin/Wound Care: May remove bandages in am. You need to leave the Dermabond on incision it will fall off on it's own. Symptoms to Report: Appetite Changes, Extremity Discoloration, Numbness/Tingling, Swelling Increased, Bleeding Excessive, Eyesight Changes, Pain Increased, Urine Color Change, Constipation(Persistent), Fever over 101 degree F, Pain/Pressure in chest, Urinating Difficulty, Cough Up/Vomit Blood, Heart Beat Irreg/Pounding, Pain/Pressure in jaw, Cramps in feet or legs, Lightheadedness, Pain/Pressure in shoulder, Diarrhea(Persistent), Memory Changes Suddenly, Questions/Concerns, Weight gain consecutive days, Dizziness/Fainting, Nausea/Vomiting, Shortness of Breath, Weight gain over 2 pounds If questions or concerns contact your physician Or seek help at emergency department. Activity Activity as Tolerated: Yes Activity Instructions: Avoid Stress to Incision Driving Instructions: No Driving/Refer to Dr. Martinez Discharge Diet: No Restrictions Diet After 24 Hours: Clear Liquid if Nauseous If Any Problems/Questions/Issu: Contact Your Physician, Go to Emergency Room Skin/Wound Care Infection Signs and Symptoms: Increased Redness, Foul Odor of Wound, Increased Drainage, Skin Itchy or Has a Rash, Increased Swelling, Temperature Above 101 F Bathing Instructions: Shower Stitches/[place]/Dermabond Dis: Care of Stitches PATI DALEY DO May 21, 2022 10:24
[2022-05-21] MEDS ORDERED: ONDANSETRON 4 MG/2 ML (SDV) Z0FRAN IVP PRN (10:45)
[2022-05-21] MEDS ORDERED: fentaNYL INJ 100 MCG/2 ML AMP IVP ONE (10:45)
[2022-05-21] MEDS ORDERED: MEPERIDINE (DEMEROL) INJ 50 MG/ML IVP ONE (10:45)
--- NOTE | 2022-05-21 17:37 | OPERATIVE REPORT ---
DATE OF SERVICE: 05/21/2022 PREOPERATIVE DIAGNOSIS: Chest mass. POSTOPERATIVE DIAGNOSIS: Chest mass, pending pathology. PROCEDURE: Excision of chest mass, an 8.5 cm incision down to just on top of the fascia. SURGEON: Pito Raphael DO WATER SUPPLY ENGINEER: RAINER Bowen. ANESTHESIA: LMA. SPECIMENS: Chest mass measuring about 9 x 5 x 5 cm. ESTIMATED BLOOD LOSS: Less than 5 mL FLUIDS: Per anesthesia. POSTOPERATIVE CONDITION: Stable. INDICATIONS FOR PROCEDURE: The patient is a 51-year-old male who has a large mass in his chest. He wanted to get it removed. He says it has been getting bigger and bothering him. FINDINGS: The patient had a large mass on his chest measured about 9 x 5 x 5 cm, it looked like it was a sebaceous cyst, removed the entire cyst small. DESCRIPTION OF PROCEDURE: After informed consent was obtained, the patient was brought to the operating room and placed on the table in supine position. He was sterilely prepped and draped in normal fashion. Local lidocaine was infiltrated in the skin above this mass as well as around it. I then made an incision with 15 blade, carried down through the skin into the subcutaneous tissue. Right at the middle of the incision, it was 8.5 cm incision, got into the mass. It looked like a sebaceous cyst. I then started dissecting around the Bovie electrocautery going all the way around it, removing the mass completely measured 9 x 5 x 5 cm. At this point, copiously irrigated with normal saline. Hemostasis was obtained using Bovie electrocautery and at this point, all the way down to the fascia, right on top of the chest wall and sternum, but did not appear to go through the fascia. We then elected to close this, closed this with 4 vertical mattress sutures and then 6 simple interrupted sutures of 2-0 Prolene. The patient tolerated the procedure. The sponge and needle count correct at the end of the case. Job ID: [id number] DocumentID: [id number] Dictated Date: 05/21/2022 10:28:36 Guest Services Date: 05/21/2022 17:35:00 Dictated By: PITO RAPHAEL DO
== END 2022-05-21 12:45 | disposition home or self-care (01) ==
LOC: SDC 08:23
PROVIDERS: ATTEND Surgery
DX: L72.0 Epidermal cyst (principal); L92.8 Other granulomatous disorders of the skin and subcutaneous tissue; E11.9 Type 2 diabetes mellitus without complications; Z79.84 Long term (current) use of oral hypoglycemic drugs; E66.9 Obesity, unspecified; Z68.34 Body mass index [BMI] 34.0-34.9, adult
CPT/HCPCS: 82947; 87081; 88304